=== PATIENT | male | born 2000 | race Caucasian/White ===

== ENCOUNTER 2021-09-01 22:08 | Emergency (ER) | payer OTHER ==
[~2021-09-01] VITALS: Ht 162.6 cm; Wt 63.6 kg
[2021-09-01] MEDS ORDERED: PREDNISONE20 MG PO (23:31)
[2021-09-02 01:00] VITALS: BP 107/50; PULSE 80
== END 2021-09-02 01:00 | disposition home or self-care (01) ==
LOC: EDSEX 22:08 → COL.ER 22:08
DX: L50.0 Allergic urticaria (principal)
CPT/HCPCS: J0171; J1100; J1200; J7120